=== PATIENT | male | born 1940 | race Caucasian/White ===

== ENCOUNTER 2017-10-01 06:41 | Emergency (ER) | payer MEDICARE ==
[~2017-10-01] VITALS: Ht 172.7 cm; Wt 77.3 kg
[~2017-10-01 06:41] MED LIST: BENA10TA2 PO; CYCL-394 PO; HYDR-569 PO; ZOL50T PO
[2017-10-01] MEDS ORDERED: benzonatate 100mg capsule PO ONE (07:00)
[2017-10-01] MEDS ORDERED: predniSONE 20 mg tablet PO ONE (07:00)
[2017-10-01] MEDS ORDERED: ipratropium/albuterol 3ml nebule NEB ONE (07:00)
[2017-10-01] MEDS ORDERED: BENZ-16 PO ×2 (07:18→08:35)
[2017-10-01] MEDS ORDERED: PRED20TA PO ×2 (07:18→08:35)
[2017-10-01] MEDS ORDERED: LEVO500T2 PO (07:18)
[2017-10-01 07:19] LABS: PARTIAL THROMBOPLASTIN TIME 30 SECONDS (22-32); PROTHROMBIN TIME 10.8 SECONDS (9.0-12.0)
[2017-10-01 07:20] LABS: BASOPHILS % (AUTO) 0.1 % (0-1); EOSINOPHILS # (AUTO) 0.2 X10'3 (0-0.9); EOSINOPHILS % (AUTO) 1.2 % (0-6); HEMATOCRIT 48.2 % (42.0-52.0); HEMOGLOBIN 16.2 g/dl (14.0-17.9); LYMPHOCYTES # (AUTO) 1.5 X10'3 (1.1-4.8); LYMPHOCYTES % (AUTO) 9.2 % (21-51); MEAN CORPUSCULAR HGB CONC 33.6 % (33.0-36.5); MEAN CORPUSCULAR VOLUME 89.3 FL (78-98); MEAN PLATELET VOLUME 7.4 FL (7.4-10.4); NEUTROPHILS # (AUTO) 13.8 X10'3 (1.8-7.7); NEUTROPHILS % (AUTO) 83.5 % (42-75); PLATELET COUNT 319 X10'3 (140-440); RED BLOOD COUNT 5.39 X10'6 (4.70-6.10); RED CELL DISTRIBUTION WIDTH 13.4 % (11.5-14.5); WHITE BLOOD COUNT 16.5 X10'3 (4.5-11.0)
[2017-10-01] MEDS ORDERED: levoFLOXACIN 250mg tablet PO ONE (07:35)
[2017-10-01 08:02] LABS: PLATELET ESTIMATE NORMAL; TOTAL CELLS COUNTED 100
[2017-10-01 08:30] VITALS: BP 132/78
[2017-10-01] MEDS ORDERED: LEVO500T89 PO (08:35)
[2017-10-01 08:42] LABS: CLARITY,URINE CLEAR (Clear); COLOR,URINE YELLOW (Yellow); GLUCOSE, URINE NEGATIVE (Neg); KETONES,URINE NEGATIVE (Neg); LEUKOCYTE ESTERASE ,URINE NEGATIVE (Neg); NITRITES, URINE NEGATIVE (Neg); OCCULT BLOOD,URINE NEGATIVE (Neg); PROTEIN,URINE NEGATIVE (Neg); UA COLLECTION TYPE URINAL
== END 2017-10-01 08:45 | disposition home or self-care (01) ==
LOC: ER 06:41
DX: J20.9 Acute bronchitis, unspecified (principal); I10 Essential (primary) hypertension; Z90.49 Acquired absence of other specified parts of digestive tract; Z87.891 Personal history of nicotine dependence; Z88.0 Allergy status to penicillin; Z79.899 Other long term (current) drug therapy
CPT/HCPCS: 36415; 71045; 81003; 83605; 83880; 84484; 85025; 85610; 85730; 93005; 94640; 94760; 99285; J7512; 87040